=== PATIENT | male | born 1935 | race Caucasian/White ===

== ENCOUNTER 2018-03-03 19:03 | Inpatient (IN) | payer MEDICARE, OTHER ==
[~2018-03-03] VITALS: Ht 185.4 cm; Wt 85.5 kg
[~2018-03-03 19:03] MED LIST: ALPR-624 PO; ASPI-41 PO; ATOR10TA PO; CHLO25TA2 PO; ECHI350C PO; GABA-534 PO; METO-395 PO; MULT-1179 PO; UBID75CA; VITA-67 PO
[2018-03-03 19:43] LABS: BASOPHILS % (AUTO) 0.2 % (0-1); EOSINOPHILS # (AUTO) 0.2 X10'3 (0-0.9); EOSINOPHILS % (AUTO) 1.3 % (0-6); HEMATOCRIT 45.5 % (42.0-52.0); HEMOGLOBIN 15.6 g/dl (14.0-17.9); LYMPHOCYTES # (AUTO) 2.5 X10'3 (1.1-4.8); LYMPHOCYTES % (AUTO) 19.9 % (21-51); MEAN CORPUSCULAR HEMOGLOBIN 32.8 PG (27.0-31.0); MEAN CORPUSCULAR HGB CONC 34.3 % (33.0-36.5); MEAN CORPUSCULAR VOLUME 95.6 FL (78-98); MEAN PLATELET VOLUME 9.8 FL (7.4-10.4); MONOCYTES # (AUTO) 0.4 X10'3 (0-0.9); MONOCYTES % (AUTO) 3.5 % (2-12); NEUTROPHILS # (AUTO) 9.3 X10'3 (1.8-7.7); NEUTROPHILS % (AUTO) 75.1 % (42-75); PLATELET COUNT 209 X10'3 (140-440); RED BLOOD COUNT 4.76 X10'6 (4.70-6.10); RED CELL DISTRIBUTION WIDTH 12.4 % (11.5-14.5); WHITE BLOOD COUNT 12.4 X10'3 (4.5-11.0)
[2018-03-03] MEDS ORDERED: pantoprazole 40 MG vial IV ONE (19:45)
[2018-03-03] MEDS ORDERED: ondansetron/PF 4mg/2ml inj IV ONE (19:45)
[2018-03-03] MEDS ORDERED: normal saline 1000ML IV soln IVB ONE ×2 (19:45→20:35)
[2018-03-03] MEDS ORDERED: famotidine/PF 10 mg/ml inj IV ONE (19:45)
[2018-03-03 19:58] LABS: INR 1.1 INR; PROTHROMBIN TIME 10.7 SECONDS (9.0-12.0)
[2018-03-03 20:03] LABS: ALANINE AMINOTRANSFERASE 26 U/L (12-78); ALBUMIN 4.2 G/DL (3.4-5.0); ALBUMIN/GLOBULIN RATIO 1.3 (1.1-1.5); ALKALINE PHOSPHATASE 78 IU/L (46-116); ANION GAP 14 (8-16); ASPARTATE AMINO TRANSFERASE 21 U/L (10-37); BILIRUBIN,TOTAL 0.6 MG/DL (0.1-1.0); BLOOD UREA NITROGEN 27 MG/DL (7-18); BUN/CREATININE RATIO 17.8 (5.4-32.0); CALCIUM 9.5 MG/DL (8.5-10.1); CHLORIDE 102 MMOL/L (99-107); CREATININE 1.52 MG/DL (0.60-1.10); GLUCOSE 135 MG/DL (70-104); SODIUM 141 MMOL/L (135-145); TOTAL CARBON DIOXIDE 25.4 MMOL/L (24-32); TOTAL PROTEIN 7.4 G/DL (6.4-8.2); eGFR 44 ML/MIN
[2018-03-03 20:07] LABS: LIPASE 120 U/L (73-393); MAGNESIUM 2.1 MG/DL (1.5-2.4)
[2018-03-03] MEDS ORDERED: morphine 4 MG/ML inj SYRINge IM ONE (20:40)
[2018-03-03] MEDS: morphine 4 MG/ML inj SYRINge IV PRN ×2 (20:46→20:59)
[2018-03-03] MEDS ORDERED: HYDROmorphone 2mg/ml vial IV STA (21:03)
[2018-03-03] MEDS ORDERED: HYDROmorphone 1 mg/ml syringe IV STA (21:17)
[2018-03-03] MEDS ORDERED: hydrALAZINE 20mg/ml inj. IV STA (22:09)
[2018-03-03] MEDS ORDERED: AREDS PO (23:00)
[2018-03-03] MEDS ORDERED: SOMNAPURE (23:00)
[2018-03-03] MEDS ORDERED: METO-539 PO (23:00)
[2018-03-04] VITALS (19 sets, daily range): BP systolic 131–173; BP diastolic 49–91
[2018-03-04] MEDS: LORazepam 2 mg/ml vial IV PRN (00:07)
[2018-03-04 00:40] LABS: CLARITY,URINE CLEAR (Clear); COLOR,URINE YELLOW (Yellow); GLUCOSE, URINE NEGATIVE (Neg); KETONES,URINE >=80 mg/dl (Neg); LEUKOCYTE ESTERASE ,URINE NEGATIVE (Neg); NITRITES, URINE NEGATIVE (Neg); OCCULT BLOOD,URINE NEGATIVE (Neg); PROTEIN,URINE NEGATIVE (Neg); UA COLLECTION TYPE VOIDED; UROBILINOGEN,URINE 0.2 E.U/dL (0.2-1.0)
[2018-03-04 00:49] LABS: URINE AMPHETAMINE SCREEN NEGATIVE (Neg); URINE BARBITUATE SCREEN NEGATIVE (Neg); URINE BENZODIAZEPINES SCREEN POSITIVE (Neg); URINE CANNABINOID SCREEN NEGATIVE (Neg); URINE COCAINE SCREEN NEGATIVE (Neg); URINE METHADONE SCREEN NEGATIVE (Neg); URINE OPIATE SCREEN POSITIVE (Neg); URINE PHENCYCLIDINE SCREEN NEGATIVE (Neg)
[2018-03-04] MEDS: normal saline 1000ml 1,000 ML IV SCH ×3 (01:13→17:28)
[2018-03-04] MEDS: HYDROmorphone 1 mg/ml syringe IV PRN ×3 (05:27→21:12)
[2018-03-04] MEDS: ondansetron/PF 4mg/2ml inj IV PRN (05:27)
[2018-03-04 06:01] LABS: BASOPHILS % (AUTO) 0.3 % (0-1); EOSINOPHILS % (AUTO) 0 % (0-6); HEMATOCRIT 46.2 % (42.0-52.0); HEMOGLOBIN 15.6 g/dl (14.0-17.9); LYMPHOCYTES # (AUTO) 0.7 X10'3 (1.1-4.8); LYMPHOCYTES % (AUTO) 4.3 % (21-51); MEAN CORPUSCULAR HEMOGLOBIN 32.4 PG (27.0-31.0); MEAN CORPUSCULAR HGB CONC 33.7 % (33.0-36.5); MEAN CORPUSCULAR VOLUME 96.1 FL (78-98); MEAN PLATELET VOLUME 10.3 FL (7.4-10.4); MONOCYTES # (AUTO) 0.4 X10'3 (0-0.9); MONOCYTES % (AUTO) 2.2 % (2-12); NEUTROPHILS # (AUTO) 14.9 X10'3 (1.8-7.7); NEUTROPHILS % (AUTO) 93.2 % (42-75); PLATELET COUNT 207 X10'3 (140-440); RED BLOOD COUNT 4.81 X10'6 (4.70-6.10); RED CELL DISTRIBUTION WIDTH 12.7 % (11.5-14.5)
[2018-03-04 06:04] LABS: ALANINE AMINOTRANSFERASE 19 U/L (12-78); ALBUMIN 3.3 G/DL (3.4-5.0); ALBUMIN/GLOBULIN RATIO 1.1 (1.1-1.5); ALKALINE PHOSPHATASE 69 IU/L (46-116); ANION GAP 9 (8-16); ASPARTATE AMINO TRANSFERASE 18 U/L (10-37); BILIRUBIN,TOTAL 0.6 MG/DL (0.1-1.0); BLOOD UREA NITROGEN 28 MG/DL (7-18); BUN/CREATININE RATIO 21.7 (5.4-32.0); CALCIUM 8.1 MG/DL (8.5-10.1); CHLORIDE 104 MMOL/L (99-107); CREATININE 1.29 MG/DL (0.60-1.10); GLUCOSE 180 MG/DL (70-104); POTASSIUM 4.6 MMOL/L (3.5-5.1); SODIUM 140 MMOL/L (135-145); TOTAL CARBON DIOXIDE 27.1 MMOL/L (24-32); TOTAL PROTEIN 6.3 G/DL (6.4-8.2); eGFR 53 ML/MIN
[2018-03-04] MEDS ORDERED: proCHLORperazine 10 MG/2 ml inj IV PRN ×2 (08:50→12:55)
[2018-03-04] MEDS: proCHLORperazine 10 MG/2 ml inj IV PRN (09:24)
[2018-03-04 09:38] LABS: HEMOGLOBIN A1C 5.2 % (4.5-6.2)
[2018-03-04] MEDS ORDERED: dexamethasone sod phosphate 10mg/ml inj ONE (11:54)
[2018-03-04] MEDS ORDERED: sevoflurane 250ml liquid IH ONE (11:54)
[2018-03-04] MEDS ORDERED: neostigmine methylsulfate 1 MG/ML 10ml vial ONE (11:54)
[2018-03-04] MEDS ORDERED: midazolam 2 mg/2 ml injection ONE (11:59)
[2018-03-04] MEDS ORDERED: propofol inj 20 ML IV ONE (12:00)
[2018-03-04] MEDS ORDERED: fentaNYL /PF 50mcg/ml 5ml ampule ONE (12:00)
[2018-03-04] MEDS ORDERED: rocuronium 10mg/ml inj IV ONE (12:00)
[2018-03-04] MEDS ORDERED: ceFOXitin 1000 MG inj ONE ×2 (12:16)
[2018-03-04] MEDS ORDERED: sugammadex 200mg/2ml injection IV ONE (12:40)
[2018-03-04] MEDS ORDERED: ringers solution, lacted 1,000 ML IV SCH (12:54)
[2018-03-04] MEDS ORDERED: morphine 4 MG/ML inj SYRINge IV PRN ×2 (12:55)
[2018-03-04] MEDS ORDERED: ondansetron/PF 4mg/2ml inj IV PRN (12:55)
[2018-03-04] MEDS ORDERED: meperidine/PF 25mg/ml syringe IV PRN ×2 (12:55)
[2018-03-04] MEDS: meperidine/PF 25mg/ml syringe IV PRN ×2 (13:04→13:51)
[2018-03-04] MEDS: gabapentin 400mg capsule PO SCH (20:46)
[2018-03-05] VITALS: BP 139/61
[2018-03-05] MEDS: HYDROmorphone 1 mg/ml syringe IV PRN ×4 (04:53→22:08)
[2018-03-05] MEDS: normal saline 1000ml 1,000 ML IV SCH ×2 (04:54→15:50)
[2018-03-05 05:48] LABS: BASOPHILS % (AUTO) 0.1 % (0-1); EOSINOPHILS # (AUTO) 0.2 X10'3 (0-0.9); EOSINOPHILS % (AUTO) 1.1 % (0-6); HEMATOCRIT 40.7 % (42.0-52.0); HEMOGLOBIN 13.7 g/dl (14.0-17.9); LYMPHOCYTES # (AUTO) 1.3 X10'3 (1.1-4.8); MEAN CORPUSCULAR HEMOGLOBIN 32.6 PG (27.0-31.0); MEAN CORPUSCULAR HGB CONC 33.7 % (33.0-36.5); MEAN CORPUSCULAR VOLUME 96.6 FL (78-98); MEAN PLATELET VOLUME 9.7 FL (7.4-10.4); MONOCYTES # (AUTO) 1.4 X10'3 (0-0.9); MONOCYTES % (AUTO) 6.7 % (2-12); NEUTROPHILS # (AUTO) 18.3 X10'3 (1.8-7.7); NEUTROPHILS % (AUTO) 86.1 % (42-75); PLATELET COUNT 186 X10'3 (140-440); RED BLOOD COUNT 4.21 X10'6 (4.70-6.10); RED CELL DISTRIBUTION WIDTH 12.8 % (11.5-14.5); WHITE BLOOD COUNT 21.2 X10'3 (4.5-11.0)
[2018-03-05] MEDS: hydrALAZINE 20mg/ml inj. IV PRN (05:53)
[2018-03-05 06:31] LABS: ALANINE AMINOTRANSFERASE 16 U/L (12-78); ALBUMIN 2.7 G/DL (3.4-5.0); ALBUMIN/GLOBULIN RATIO 0.9 (1.1-1.5); ALKALINE PHOSPHATASE 55 IU/L (46-116); ANION GAP 10 (8-16); ASPARTATE AMINO TRANSFERASE 22 U/L (10-37); BILIRUBIN,TOTAL 0.5 MG/DL (0.1-1.0); BLOOD UREA NITROGEN 34 MG/DL (7-18); BUN/CREATININE RATIO 22.5 (5.4-32.0); CALCIUM 7.6 MG/DL (8.5-10.1); CHLORIDE 106 MMOL/L (99-107); CREATININE 1.51 MG/DL (0.60-1.10); GLUCOSE 134 MG/DL (70-104); POTASSIUM 4.6 MMOL/L (3.5-5.1); SODIUM 140 MMOL/L (135-145); TOTAL CARBON DIOXIDE 23.9 MMOL/L (24-32); TOTAL PROTEIN 5.6 G/DL (6.4-8.2); eGFR 44 ML/MIN
[2018-03-05] MEDS: metoprolol succinate 25mg (24-HOUR) SR. Tablet PO SCH (07:11)
[2018-03-05 07:30] VITALS: BP 181/77
[2018-03-05 11:30] VITALS: BP 154/66
[2018-03-05] MEDS: ondansetron/PF 4mg/2ml inj IV PRN (17:17)
[2018-03-05] MEDS: proCHLORperazine 10 MG/2 ml inj IV PRN (18:03)
[2018-03-05 19:00] VITALS: BP 147/81
[2018-03-05] MEDS: gabapentin 400mg capsule PO SCH (20:46)
[2018-03-05 23:47] VITALS: BP 158/70
[2018-03-06] MEDS: normal saline 1000ml 1,000 ML IV SCH (01:23)
[2018-03-06] MEDS: HYDROmorphone 1 mg/ml syringe IV PRN ×5 (02:11→23:29)
[2018-03-06] MEDS: proCHLORperazine 10 MG/2 ml inj IV PRN ×2 (03:00→18:51)
[2018-03-06 05:11] LABS: BASOPHILS # (AUTO) 0.1 X10'3 (0-0.2); BASOPHILS % (AUTO) 0.3 % (0-1); EOSINOPHILS % (AUTO) 0.1 % (0-6); HEMATOCRIT 36.5 % (42.0-52.0); HEMOGLOBIN 12.3 g/dl (14.0-17.9); LYMPHOCYTES # (AUTO) 1.1 X10'3 (1.1-4.8); LYMPHOCYTES % (AUTO) 7.1 % (21-51); MEAN CORPUSCULAR HEMOGLOBIN 32.7 PG (27.0-31.0); MEAN CORPUSCULAR HGB CONC 33.8 % (33.0-36.5); MEAN CORPUSCULAR VOLUME 96.7 FL (78-98); MEAN PLATELET VOLUME 10.1 FL (7.4-10.4); MONOCYTES % (AUTO) 7.1 % (2-12); NEUTROPHILS # (AUTO) 12.6 X10'3 (1.8-7.7); NEUTROPHILS % (AUTO) 85.4 % (42-75); PLATELET COUNT 157 X10'3 (140-440); RED BLOOD COUNT 3.77 X10'6 (4.70-6.10); WHITE BLOOD COUNT 14.8 X10'3 (4.5-11.0)
[2018-03-06 05:29] LABS: ALANINE AMINOTRANSFERASE 20 U/L (12-78); ALBUMIN 2.6 G/DL (3.4-5.0); ALBUMIN/GLOBULIN RATIO 0.9 (1.1-1.5); ALKALINE PHOSPHATASE 78 IU/L (46-116); ANION GAP 7 (8-16); ASPARTATE AMINO TRANSFERASE 32 U/L (10-37); BILIRUBIN,TOTAL 0.7 MG/DL (0.1-1.0); BLOOD UREA NITROGEN 29 MG/DL (7-18); BUN/CREATININE RATIO 21.2 (5.4-32.0); CALCIUM 7.6 MG/DL (8.5-10.1); CHLORIDE 105 MMOL/L (99-107); CREATININE 1.37 MG/DL (0.60-1.10); GLUCOSE 132 MG/DL (70-104); POTASSIUM 4.3 MMOL/L (3.5-5.1); SODIUM 138 MMOL/L (135-145); TOTAL CARBON DIOXIDE 26.2 MMOL/L (24-32); TOTAL PROTEIN 5.6 G/DL (6.4-8.2); eGFR 50 ML/MIN
[2018-03-06 07:12] VITALS: BP 196/88
[2018-03-06] MEDS: metoprolol succinate 25mg (24-HOUR) SR. Tablet PO SCH (07:41)
[2018-03-06] MEDS: hydrALAZINE 20mg/ml inj. IV PRN ×2 (07:41→20:59)
[2018-03-06 09:40] VITALS: BP 186/72
[2018-03-06] MEDS ORDERED: amLODIPine 5mg tablet PO ONE (10:00)
[2018-03-06 11:00] VITALS: BP 166/79
[2018-03-06] MEDS: diatr meglu/diatrizoate 30ml oral sol.-(3 dose) bottle PO SCH ×3 (11:48→17:41)
[2018-03-06 18:00] VITALS: BP 184/81
[2018-03-06] MEDS: ipratropium/albuterol 3ml nebule NEB PRN ×2 (20:12→23:48)
[2018-03-06] MEDS: gabapentin 400mg capsule PO SCH (20:59)
[2018-03-06 21:30] VITALS: BP 138/85
[2018-03-06] MEDS ORDERED: mag hydrox/Alum hydrox/simeth 30ml oral suspension PO PRN (23:05)
[2018-03-07] VITALS: BP 144/86
[2018-03-07] MEDS: proCHLORperazine 10 MG/2 ml inj IV PRN ×2 (03:50→15:16)
[2018-03-07] MEDS: HYDROmorphone 1 mg/ml syringe IV PRN ×3 (03:50→15:16)
[2018-03-07 05:12] LABS: BASOPHILS % (AUTO) 0.3 % (0-1); EOSINOPHILS % (AUTO) 0 % (0-6); HEMATOCRIT 38.7 % (42.0-52.0); HEMOGLOBIN 13.1 g/dl (14.0-17.9); LYMPHOCYTES # (AUTO) 1.1 X10'3 (1.1-4.8); LYMPHOCYTES % (AUTO) 8.1 % (21-51); MEAN CORPUSCULAR HEMOGLOBIN 32.8 PG (27.0-31.0); MEAN CORPUSCULAR HGB CONC 33.8 % (33.0-36.5); MEAN CORPUSCULAR VOLUME 97.1 FL (78-98); MEAN PLATELET VOLUME 10.3 FL (7.4-10.4); MONOCYTES # (AUTO) 0.9 X10'3 (0-0.9); MONOCYTES % (AUTO) 6.8 % (2-12); NEUTROPHILS # (AUTO) 11.5 X10'3 (1.8-7.7); NEUTROPHILS % (AUTO) 84.8 % (42-75); PLATELET COUNT 201 X10'3 (140-440); RED BLOOD COUNT 3.99 X10'6 (4.70-6.10); RED CELL DISTRIBUTION WIDTH 12.8 % (11.5-14.5); WHITE BLOOD COUNT 13.6 X10'3 (4.5-11.0)
[2018-03-07] MEDS: ipratropium/albuterol 3ml nebule NEB PRN (05:17)
[2018-03-07 05:59] LABS: ALANINE AMINOTRANSFERASE 25 U/L (12-78); ALBUMIN 2.7 G/DL (3.4-5.0); ALBUMIN/GLOBULIN RATIO 0.8 (1.1-1.5); ALKALINE PHOSPHATASE 58 IU/L (46-116); ANION GAP 8 (8-16); ASPARTATE AMINO TRANSFERASE 32 U/L (10-37); BILIRUBIN,TOTAL 0.7 MG/DL (0.1-1.0); BLOOD UREA NITROGEN 32 MG/DL (7-18); BUN/CREATININE RATIO 25.2 (5.4-32.0); CALCIUM 8.2 MG/DL (8.5-10.1); CHLORIDE 103 MMOL/L (99-107); CREATININE 1.27 MG/DL (0.60-1.10); GLUCOSE 134 MG/DL (70-104); POTASSIUM 4.1 MMOL/L (3.5-5.1); SODIUM 138 MMOL/L (135-145); TOTAL CARBON DIOXIDE 26.7 MMOL/L (24-32); TOTAL PROTEIN 6.1 G/DL (6.4-8.2); eGFR 54 ML/MIN
[2018-03-07 08:00] VITALS: BP 171/80
[2018-03-07] MEDS: ipratropium/albuterol 3ml nebule NEB SCH ×5 (08:55→23:44)
[2018-03-07] MEDS: metoprolol succinate 25mg (24-HOUR) SR. Tablet PO SCH (09:03)
[2018-03-07] MEDS: hydrALAZINE 20mg/ml inj. IV PRN (09:05)
[2018-03-07] MEDS: CefTRIAXone/D5W-Rocephin 1gm 50 ML IV SCH (10:53)
[2018-03-07 11:00] VITALS: BP 160/74
[2018-03-07] MEDS ORDERED: furosemide 40mg/4ml inj IV ONE (17:25)
[2018-03-07] MEDS ORDERED: furosemide 40mg/4ml inj ONE (17:28)
[2018-03-07 17:36] LABS: ABG BASE EXCESS 1.3 mmol/L (-2.0-3.0); ABG OXYGEN SATURATION 90.8 % (95-98); ABG PCO2 (T) 41.4 mmHg (35.0-48.0); ABG PH (T) 7.416 (7.350-7.450); ABG PO2 (T) 55.7 mmHg (83-108); ALLEN'S TEST Positive; FCOHb 0.8 % (0.5-1.5); FLOW 6 L/min; FMetHb 0.2 % (0.3-1.12); FO2Hb 89.9 % (94-100); TOTAL HEMOGLOBIN 14.3 G/dl (14.0-18.0)
[2018-03-07 18:30] VITALS: BP 142/88
[2018-03-07] MEDS ORDERED: heparin, porcine 5000 units/ml vial SQ SCH (20:00)
[2018-03-07] MEDS: fluconazole 100mg tablet PO SCH (20:03)
[2018-03-07] MEDS: gabapentin 400mg capsule PO SCH (21:00)
[2018-03-07 23:46] LABS: ABG BASE EXCESS 1.9 mmol/L (-2.0-3.0); ABG PCO2 (T) 33.4 mmHg (35.0-48.0); ABG PO2 (T) 67.5 mmHg (83-108); ALLEN'S TEST Positive; FCOHb 0.5 % (0.5-1.5); FLOW 5 L/min; FMetHb 0.2 % (0.3-1.12); FO2Hb 94.3 % (94-100); PATIENT TEMPERATURE 36.3; TOTAL HEMOGLOBIN 14.7 G/dl (14.0-18.0)
[2018-03-07 23:53] LABS: MAGNESIUM 2.6 MG/DL (1.5-2.4); PHOSPHORUS 2.8 MG/DL (2.3-4.5); TROPONIN I 0.15 NG/ML (0.0-0.05)
[2018-03-08] MEDS: azithromycin/NS 500mg/250ml 250 ML IV SCH
[2018-03-08 00:10] LABS: D-DIMER 10.12 MG/L FEU (0-0.50)
[2018-03-08] MEDS ORDERED: heparin 10,000 units/1 ML INJ IV PRN ×2 (00:55→01:05)
[2018-03-08] MEDS ORDERED: heparin 25,000 UNIT/250ml bag 250 ML IV SCH (00:55)
[2018-03-08] MEDS ORDERED: heparin 10,000 units/1 ML INJ IV ONE ×2 (00:55→01:05)
[2018-03-08] MEDS: HYDROmorphone 1 mg/ml syringe IV PRN (01:46)
[2018-03-08 02:00] VITALS: BP 153/79
[2018-03-08] MEDS: heparin 25,000 UNIT/250ml bag 250 ML IV SCH ×3 (02:00→21:15)
[2018-03-08 02:23] LABS: ALANINE AMINOTRANSFERASE 20 U/L (12-78); ALBUMIN 2.6 G/DL (3.4-5.0); ALBUMIN/GLOBULIN RATIO 0.8 (1.1-1.5); ALKALINE PHOSPHATASE 57 IU/L (46-116); ANION GAP 6 (8-16); ASPARTATE AMINO TRANSFERASE 23 U/L (10-37); BASOPHILS % (AUTO) 0.2 % (0-1); BILIRUBIN,TOTAL 0.8 MG/DL (0.1-1.0); BLOOD UREA NITROGEN 43 MG/DL (7-18); BUN/CREATININE RATIO 29.9 (5.4-32.0); CALCIUM 8.1 MG/DL (8.5-10.1); CHLORIDE 101 MMOL/L (99-107); CREATININE 1.44 MG/DL (0.60-1.10); EOSINOPHILS % (AUTO) 0 % (0-6); GLUCOSE 162 MG/DL (70-104); HEMATOCRIT 39.1 % (42.0-52.0); HEMOGLOBIN 13.3 g/dl (14.0-17.9); LYMPHOCYTES # (AUTO) 0.6 X10'3 (1.1-4.8); MEAN CORPUSCULAR HEMOGLOBIN 32.5 PG (27.0-31.0); MEAN CORPUSCULAR HGB CONC 34.1 % (33.0-36.5); MEAN CORPUSCULAR VOLUME 95.5 FL (78-98); MEAN PLATELET VOLUME 10.1 FL (7.4-10.4); MONOCYTES # (AUTO) 0.6 X10'3 (0-0.9); MONOCYTES % (AUTO) 5.7 % (2-12); NEUTROPHILS # (AUTO) 9.8 X10'3 (1.8-7.7); NEUTROPHILS % (AUTO) 89.1 % (42-75); PLATELET COUNT 230 X10'3 (140-440); POTASSIUM 3.8 MMOL/L (3.5-5.1); RED BLOOD COUNT 4.09 X10'6 (4.70-6.10); RED CELL DISTRIBUTION WIDTH 12.6 % (11.5-14.5); SODIUM 137 MMOL/L (135-145); TOTAL CARBON DIOXIDE 29.7 MMOL/L (24-32); TOTAL PROTEIN 5.9 G/DL (6.4-8.2); eGFR 47 ML/MIN
[2018-03-08 02:50] LABS: INR 1.2 INR; PARTIAL THROMBOPLASTIN TIME 31 SECONDS (22-32); PROTHROMBIN TIME 11.8 SECONDS (9.0-12.0)
[2018-03-08] MEDS: ipratropium/albuterol 3ml nebule NEB SCH ×6 (03:27→23:28)
[2018-03-08] MEDS: LORazepam 2 mg/ml vial IV PRN ×2 (03:49→23:44)
[2018-03-08 05:33] LABS: BASOPHILS % (AUTO) 0 % (0-1); EOSINOPHILS % (AUTO) 0 % (0-6); HEMOGLOBIN 13.1 g/dl (14.0-17.9); LYMPHOCYTES # (AUTO) 0.8 X10'3 (1.1-4.8); LYMPHOCYTES % (AUTO) 7.6 % (21-51); MEAN CORPUSCULAR HEMOGLOBIN 32.2 PG (27.0-31.0); MEAN CORPUSCULAR HGB CONC 33.5 % (33.0-36.5); MEAN CORPUSCULAR VOLUME 96.3 FL (78-98); MEAN PLATELET VOLUME 9.9 FL (7.4-10.4); MONOCYTES # (AUTO) 0.9 X10'3 (0-0.9); MONOCYTES % (AUTO) 8.6 % (2-12); NEUTROPHILS # (AUTO) 8.6 X10'3 (1.8-7.7); NEUTROPHILS % (AUTO) 83.8 % (42-75); PLATELET COUNT 239 X10'3 (140-440); RED BLOOD COUNT 4.05 X10'6 (4.70-6.10); WHITE BLOOD COUNT 10.3 X10'3 (4.5-11.0)
[2018-03-08] MEDS: proCHLORperazine 10 MG/2 ml inj IV PRN (06:37)
[2018-03-08 07:00] VITALS: BP 151/78
[2018-03-08] MEDS: metoprolol succinate 25mg (24-HOUR) SR. Tablet PO SCH (07:57)
[2018-03-08] MEDS: CefTRIAXone/D5W-Rocephin 1gm 50 ML IV SCH (07:59)
[2018-03-08] MEDS ORDERED: nitroGLYCERIN 0.1mg/hour patch TD SCH (08:00)
[2018-03-08] MEDS ORDERED: furosemide 40mg/4ml inj IV SCH (08:00)
[2018-03-08] MEDS ORDERED: aspirin 81mg tab.chew PO SCH (08:30)
[2018-03-08] MEDS: fluconazole 100mg tablet PO SCH (10:50)
[2018-03-08 11:00] VITALS: BP 155/79
[2018-03-08] MEDS ORDERED: normal saline 1000ml 1,000 ML IV SCH (14:40)
[2018-03-08 15:00] VITALS: BP 158/64
[2018-03-08 19:00] VITALS: BP 156/87
[2018-03-08] MEDS: gabapentin 400mg capsule PO SCH (19:52)
[2018-03-08] MEDS: docusate sod 100mg capsule PO SCH (19:52)
[2018-03-08] MEDS: lactobacillus rhamnosus 10,000 MMU CELLS/CAPSULE PO SCH (19:52)
[2018-03-08 23:00] VITALS: BP 160/75
[2018-03-08] MEDS ORDERED: hydrALAZINE 20mg/ml inj. IV ONE (23:20)
[2018-03-08 23:26] LABS: ABG BASE EXCESS 1.2 mmol/L (-2.0-3.0); ABG HCO3 24.4 mmol/L (22.0-26.0); ABG OXYGEN SATURATION 90.2 % (95-98); ABG PH (T) 7.474 (7.350-7.450); ABG PO2 (T) 54.7 mmHg (83-108); FCOHb 0.3 % (0.5-1.5); FLOW 12 L/min; FMetHb 0.2 % (0.3-1.12); FO2Hb 89.7 % (94-100); PATIENT TEMPERATURE 36.7; RESPIRATORY RATE (OBSERVED) 20 b/min; TOTAL HEMOGLOBIN 13.2 G/dl (14.0-18.0)
[2018-03-08] MEDS: hydrALAZINE 20mg/ml inj. IV PRN (23:26)
[2018-03-08] MEDS ORDERED: nitroGLYCERIN 0.4mg SUBLingual tab SL STA (23:34)
[2018-03-08] MEDS ORDERED: nitroGLYCERIN 0.4mg SUBLingual tab SL ONE ×2 (23:34→23:38)
[2018-03-08] MEDS ORDERED: protamine sulf. 10mg/ml inj. IV ONE (23:40)
[2018-03-08 23:41] LABS: BASOPHILS % (AUTO) 0.2 % (0-1); EOSINOPHILS % (AUTO) 0.5 % (0-6); HEMATOCRIT 37.5 % (42.0-52.0); HEMOGLOBIN 12.3 g/dl (14.0-17.9); LYMPHOCYTES # (AUTO) 1.3 X10'3 (1.1-4.8); LYMPHOCYTES % (AUTO) 14.1 % (21-51); MEAN CORPUSCULAR HEMOGLOBIN 31.9 PG (27.0-31.0); MEAN CORPUSCULAR HGB CONC 32.7 % (33.0-36.5); MEAN CORPUSCULAR VOLUME 97.6 FL (78-98); MEAN PLATELET VOLUME 9.7 FL (7.4-10.4); MONOCYTES # (AUTO) 0.7 X10'3 (0-0.9); MONOCYTES % (AUTO) 7.7 % (2-12); NEUTROPHILS % (AUTO) 77.5 % (42-75); PLATELET COUNT 220 X10'3 (140-440); RED BLOOD COUNT 3.84 X10'6 (4.70-6.10); RED CELL DISTRIBUTION WIDTH 12.6 % (11.5-14.5)
[2018-03-08] MEDS ORDERED: pantoprazole 40 MG vial IV ONE (23:50)
[2018-03-08 23:54] LABS: ALANINE AMINOTRANSFERASE 27 U/L (12-78); ALBUMIN 2.3 G/DL (3.4-5.0); ALBUMIN/GLOBULIN RATIO 0.8 (1.1-1.5); ALKALINE PHOSPHATASE 85 IU/L (46-116); ANION GAP 7 (8-16); ASPARTATE AMINO TRANSFERASE 27 U/L (10-37); BILIRUBIN,TOTAL 0.9 MG/DL (0.1-1.0); BLOOD UREA NITROGEN 48 MG/DL (7-18); BUN/CREATININE RATIO 36.4 (5.4-32.0); CALCIUM 7.5 MG/DL (8.5-10.1); CHLORIDE 103 MMOL/L (99-107); CREATININE 1.32 MG/DL (0.60-1.10); GLUCOSE 113 MG/DL (70-104); POTASSIUM 3.6 MMOL/L (3.5-5.1); SODIUM 138 MMOL/L (135-145); TOTAL CARBON DIOXIDE 28.1 MMOL/L (24-32); TOTAL PROTEIN 5.3 G/DL (6.4-8.2); eGFR 52 ML/MIN
[2018-03-08 23:56] LABS: MAGNESIUM 2.3 MG/DL (1.5-2.4); TROPONIN I 0.05 NG/ML (0.0-0.05)
[2018-03-09] MEDS ORDERED: diphenhydrAMINE 50 mg/ml inj IM ONE (00:05)
[2018-03-09] MEDS ORDERED: methylPREDNISolone sod succ 125mg/2ml vial IV ONE (00:05)
[2018-03-09] MEDS: furosemide 20 MG/2 ML vial IV SCH ×2 (00:17→23:57)
[2018-03-09 00:30] LABS: INR 1.3 INR; PROTHROMBIN TIME 13.3 SECONDS (9.0-12.0)
[2018-03-09 00:33] LABS: PARTIAL THROMBOPLASTIN TIME 143 SECONDS (22-32)
[2018-03-09 00:46] LABS: ABG BASE EXCESS 1.4 mmol/L (-2.0-3.0); ABG HCO3 23.9 mmol/L (22.0-26.0); ABG OXYGEN SATURATION 97.3 % (95-98); ABG PCO2 (T) 30.6 mmHg (35.0-48.0); ABG PH (T) 7.509 (7.350-7.450); ABG PO2 (T) 87.6 mmHg (83-108); FCOHb 0.3 % (0.5-1.5); FMetHb 0.2 % (0.3-1.12); FO2Hb 96.8 % (94-100); MINUTE VOLUME 20 L/min; PATIENT TEMPERATURE 36.5; RESPIRATORY RATE 18 b/min; RESPIRATORY RATE (OBSERVED) 27 b/min
[2018-03-09] MEDS: azithromycin/NS 500mg/250ml 250 ML IV SCH (02:18)
[2018-03-09] MEDS: ipratropium/albuterol 3ml nebule NEB SCH ×6 (02:39→23:11)
[2018-03-09 03:00] VITALS: BP 138/66
[2018-03-09] MEDS: LORazepam 2 mg/ml vial IV PRN ×2 (03:33→23:55)
[2018-03-09 06:10] LABS: BASOPHILS % (AUTO) 0.1 % (0-1); EOSINOPHILS % (AUTO) 0.1 % (0-6); HEMATOCRIT 33.2 % (42.0-52.0); HEMOGLOBIN 11.4 g/dl (14.0-17.9); LYMPHOCYTES # (AUTO) 0.5 X10'3 (1.1-4.8); LYMPHOCYTES % (AUTO) 5.6 % (21-51); MEAN CORPUSCULAR HEMOGLOBIN 32.9 PG (27.0-31.0); MEAN CORPUSCULAR HGB CONC 34.3 % (33.0-36.5); MEAN CORPUSCULAR VOLUME 96.1 FL (78-98); MEAN PLATELET VOLUME 10.6 FL (7.4-10.4); MONOCYTES # (AUTO) 0.2 X10'3 (0-0.9); MONOCYTES % (AUTO) 2.4 % (2-12); NEUTROPHILS # (AUTO) 7.5 X10'3 (1.8-7.7); NEUTROPHILS % (AUTO) 91.8 % (42-75); PLATELET COUNT 188 X10'3 (140-440); RED BLOOD COUNT 3.46 X10'6 (4.70-6.10); RED CELL DISTRIBUTION WIDTH 12.7 % (11.5-14.5); WHITE BLOOD COUNT 8.1 X10'3 (4.5-11.0)
[2018-03-09 07:00] VITALS: BP 136/58
[2018-03-09] MEDS: lactobacillus rhamnosus 10,000 MMU CELLS/CAPSULE PO SCH ×2 (08:00→20:20)
[2018-03-09] MEDS ORDERED: furosemide 40mg/4ml inj IV SCH (08:00)
[2018-03-09] MEDS ORDERED: heparin, porcine 5000 units/ml vial SQ SCH (08:00)
[2018-03-09] MEDS: docusate sod 100mg capsule PO SCH ×2 (08:00→20:20)
[2018-03-09] MEDS: CefTRIAXone/D5W-Rocephin 1gm 50 ML IV SCH (08:11)
[2018-03-09] MEDS: furosemide 40mg/4ml inj IV SCH (08:15)
[2018-03-09] MEDS: fluconazole 100mg tablet PO SCH (08:20)
[2018-03-09] MEDS: metoprolol succinate 25mg (24-HOUR) SR. Tablet PO SCH (08:20)
[2018-03-09 11:00] VITALS: BP 125/72
[2018-03-09] MEDS ORDERED: LIDOcaine 1% (10mg/ml) 2ml vial ONE (11:50)
[2018-03-09] MEDS ORDERED: iohexol 350MG/ML 100ml bottle IV ONE (11:53)
[2018-03-09 15:00] VITALS: BP 159/73
[2018-03-09] MEDS: HYDROmorphone 1 mg/ml syringe IV PRN (17:39)
[2018-03-09] MEDS ORDERED: magnesium hydroxide 30ml (MOM) UD suspension PO PRN (17:55)
[2018-03-09 19:00] VITALS: BP 163/72
[2018-03-09] MEDS: gabapentin 400mg capsule PO SCH (20:20)
[2018-03-09 23:00] VITALS: BP 147/65
[2018-03-10 03:00] VITALS: BP 116/55
[2018-03-10] MEDS: ipratropium/albuterol 3ml nebule NEB SCH ×6 (03:00→23:28)
[2018-03-10] MEDS: methylPREDNISolone sod succ/PF 40mg inj. IV SCH ×3 (04:23→14:27)
[2018-03-10 05:41] LABS: BASOPHILS % (AUTO) 0.1 % (0-1); EOSINOPHILS % (AUTO) 0.5 % (0-6); HEMATOCRIT 31.1 % (42.0-52.0); HEMOGLOBIN 10.6 g/dl (14.0-17.9); LYMPHOCYTES # (AUTO) 1.3 X10'3 (1.1-4.8); LYMPHOCYTES % (AUTO) 15.3 % (21-51); MEAN CORPUSCULAR HGB CONC 34.2 % (33.0-36.5); MEAN CORPUSCULAR VOLUME 96.8 FL (78-98); MEAN PLATELET VOLUME 9.9 FL (7.4-10.4); MONOCYTES # (AUTO) 1.2 X10'3 (0-0.9); MONOCYTES % (AUTO) 13.9 % (2-12); NEUTROPHILS # (AUTO) 5.9 X10'3 (1.8-7.7); NEUTROPHILS % (AUTO) 70.2 % (42-75); PLATELET COUNT 193 X10'3 (140-440); RED BLOOD COUNT 3.21 X10'6 (4.70-6.10); RED CELL DISTRIBUTION WIDTH 12.7 % (11.5-14.5); WHITE BLOOD COUNT 8.5 X10'3 (4.5-11.0)
[2018-03-10 08:00] VITALS: BP 132/74
[2018-03-10] MEDS ORDERED: enoxaparin 60mg/0.6ml syringe SUBCUT SCH (08:00)
[2018-03-10] MEDS ORDERED: enoxaparin 30mg/0.3ml syringe SUBCUT SCH (08:00)
[2018-03-10] MEDS: metoprolol succinate 25mg (24-HOUR) SR. Tablet PO SCH (08:28)
[2018-03-10] MEDS: azithromycin 250mg tablet PO SCH (08:28)
[2018-03-10] MEDS: docusate sod 100mg capsule PO SCH ×2 (08:30→20:04)
[2018-03-10] MEDS: furosemide 40mg/4ml inj IV SCH (08:32)
[2018-03-10] MEDS: heparin, porcine 5000 units/ml vial SQ SCH ×2 (08:32→20:05)
[2018-03-10] MEDS: CefTRIAXone/D5W-Rocephin 1gm 50 ML IV SCH (08:38)
[2018-03-10] MEDS: lactobacillus rhamnosus 10,000 MMU CELLS/CAPSULE PO SCH ×2 (08:38→20:04)
[2018-03-10] MEDS: fluconazole 100mg tablet PO SCH (08:42)
[2018-03-10 11:00] VITALS: BP 148/62
[2018-03-10 15:00] VITALS: BP 157/80
[2018-03-10 15:17] LABS: ALANINE AMINOTRANSFERASE 103 U/L (12-78); ALBUMIN 2.3 G/DL (3.4-5.0); ALBUMIN/GLOBULIN RATIO 0.7 (1.1-1.5); ALKALINE PHOSPHATASE 129 IU/L (46-116); ANION GAP 9 (8-16); ASPARTATE AMINO TRANSFERASE 74 U/L (10-37); BILIRUBIN,TOTAL 0.5 MG/DL (0.1-1.0); BLOOD UREA NITROGEN 45 MG/DL (7-18); BUN/CREATININE RATIO 32.8 (5.4-32.0); CALCIUM 7.9 MG/DL (8.5-10.1); CHLORIDE 104 MMOL/L (99-107); CREATININE 1.37 MG/DL (0.60-1.10); GLUCOSE 162 MG/DL (70-104); POTASSIUM 3.9 MMOL/L (3.5-5.1); SODIUM 139 MMOL/L (135-145); TOTAL CARBON DIOXIDE 26.4 MMOL/L (24-32); TOTAL PROTEIN 5.5 G/DL (6.4-8.2); eGFR 50 ML/MIN
[2018-03-10 19:00] VITALS: BP 164/70
[2018-03-10] MEDS: gabapentin 400mg capsule PO SCH (21:52)
[2018-03-10 23:00] VITALS: BP 162/72
[2018-03-11] MEDS: furosemide 20 MG/2 ML vial IV SCH (00:05)
[2018-03-11] MEDS: ondansetron/PF 4mg/2ml inj IV PRN (01:48)
[2018-03-11 03:00] VITALS: BP 160/71
[2018-03-11] MEDS: ipratropium/albuterol 3ml nebule NEB SCH ×4 (03:33→15:54)
[2018-03-11 05:52] LABS: BASOPHILS % (AUTO) 0.3 % (0-1); EOSINOPHILS % (AUTO) 0.1 % (0-6); HEMATOCRIT 34.1 % (42.0-52.0); HEMOGLOBIN 11.4 g/dl (14.0-17.9); LYMPHOCYTES # (AUTO) 1.7 X10'3 (1.1-4.8); LYMPHOCYTES % (AUTO) 13.9 % (21-51); MEAN CORPUSCULAR HEMOGLOBIN 32.2 PG (27.0-31.0); MEAN CORPUSCULAR HGB CONC 33.6 % (33.0-36.5); MEAN CORPUSCULAR VOLUME 95.8 FL (78-98); MEAN PLATELET VOLUME 10.4 FL (7.4-10.4); MONOCYTES # (AUTO) 1.3 X10'3 (0-0.9); MONOCYTES % (AUTO) 10.9 % (2-12); NEUTROPHILS # (AUTO) 9.1 X10'3 (1.8-7.7); NEUTROPHILS % (AUTO) 74.8 % (42-75); PLATELET COUNT 237 X10'3 (140-440); RED BLOOD COUNT 3.55 X10'6 (4.70-6.10); RED CELL DISTRIBUTION WIDTH 12.5 % (11.5-14.5); WHITE BLOOD COUNT 12.2 X10'3 (4.5-11.0)
[2018-03-11 06:00] VITALS: BP 176/78
[2018-03-11 06:24] LABS: ALANINE AMINOTRANSFERASE 170 U/L (12-78); ALBUMIN 2.3 G/DL (3.4-5.0); ALBUMIN/GLOBULIN RATIO 0.7 (1.1-1.5); ALKALINE PHOSPHATASE 140 IU/L (46-116); ANION GAP 8 (8-16); ASPARTATE AMINO TRANSFERASE 114 U/L (10-37); BILIRUBIN,TOTAL 0.4 MG/DL (0.1-1.0); BLOOD UREA NITROGEN 38 MG/DL (7-18); BUN/CREATININE RATIO 29.5 (5.4-32.0); CHLORIDE 104 MMOL/L (99-107); CREATININE 1.29 MG/DL (0.60-1.10); GLUCOSE 136 MG/DL (70-104); POTASSIUM 3.4 MMOL/L (3.5-5.1); SODIUM 141 MMOL/L (135-145); TOTAL CARBON DIOXIDE 28.7 MMOL/L (24-32); TOTAL PROTEIN 5.4 G/DL (6.4-8.2); eGFR 53 ML/MIN
[2018-03-11] MEDS ORDERED: predniSONE 20 mg tablet PO SCH (08:00)
[2018-03-11] MEDS: lactobacillus rhamnosus 10,000 MMU CELLS/CAPSULE PO SCH (08:15)
[2018-03-11] MEDS: metoprolol succinate 25mg (24-HOUR) SR. Tablet PO SCH (08:15)
[2018-03-11] MEDS: azithromycin 250mg tablet PO SCH (08:15)
[2018-03-11] MEDS: fluconazole 100mg tablet PO SCH (08:15)
[2018-03-11] MEDS: furosemide 40mg/4ml inj IV SCH (08:16)
[2018-03-11] MEDS: heparin, porcine 5000 units/ml vial SQ SCH (08:17)
[2018-03-11] MEDS: CefTRIAXone/D5W-Rocephin 1gm 50 ML IV SCH (08:19)
[2018-03-11] MEDS: docusate sod 100mg capsule PO SCH (08:21)
[2018-03-11 11:00] VITALS: BP 148/69
[2018-03-11] MEDS ORDERED: AMOX-422 PO (13:55)
[2018-03-11] MEDS ORDERED: PRED20TA PO (13:55)
[2018-03-11] MEDS ORDERED: FLUC100T9 PO (13:55)
[2018-03-11] MEDS ORDERED: FURO20TA4 PO (13:59)
[2018-03-11 15:00] VITALS: BP 147/75
[2018-03-11] MEDS ORDERED: IPRA4AER IH (15:13)
== END 2018-03-11 16:40 | disposition home health service (06) | DRG 853 ==
LOC: ER 19:04 → ED HOLD 23:40 → EDBEDREQ 03-04 00:13 → SUR 3N 03-04 00:30 → PCU 3S 03-07 23:53
PROVIDERS: ADMIT Internal Medicine; ATTEND Family Medicine
PROC: 0D9670Z Drainage of Stomach with Drainage Device, Via Natural or Artificial Opening (ICD-10-PCS; 2018-03-04)
PROC: 0DNU0ZZ Release Omentum, Open Approach (ICD-10-PCS; 2018-03-04)
PROC: 0DN80ZZ Release Small Intestine, Open Approach (ICD-10-PCS; principal; 2018-03-04 11:54)
PROC: 5A09357 Assistance with Respiratory Ventilation, Less than 24 Consecutive Hours, Continuous Positive Airway Pressure (ICD-10-PCS; 2018-03-07)
PROC: 5A09357 Assistance with Respiratory Ventilation, Less than 24 Consecutive Hours, Continuous Positive Airway Pressure (ICD-10-PCS; 2018-03-08)
PROC: CB121ZZ Planar Nuclear Medicine Imaging of Lungs and Bronchi using Technetium 99m (Tc-99m) (ICD-10-PCS; 2018-03-08)
PROC: B32T1ZZ Computerized Tomography (CT Scan) of Left Pulmonary Artery using Low Osmolar Contrast (ICD-10-PCS; 2018-03-09)
PROC: B3201ZZ Computerized Tomography (CT Scan) of Thoracic Aorta using Low Osmolar Contrast (ICD-10-PCS; 2018-03-09)
PROC: B32S1ZZ Computerized Tomography (CT Scan) of Right Pulmonary Artery using Low Osmolar Contrast (ICD-10-PCS; 2018-03-09)
DX: A41.9 Sepsis, unspecified organism (principal); J96.01 Acute respiratory failure with hypoxia; E43 Unspecified severe protein-calorie malnutrition; B37.1 Pulmonary candidiasis; E87.2 Acidosis; N17.9 Acute kidney failure, unspecified; R18.8 Other ascites; K56.50 Intestinal adhesions [bands], unspecified as to partial versus complete obstruction; K56.7 Ileus, unspecified; J81.1 Chronic pulmonary edema; J98.11 Atelectasis; E87.6 Hypokalemia; I12.9 Hypertensive chronic kidney disease with stage 1 through stage 4 chronic kidney disease, or unspecified chronic kidney disease; N18.3 Chronic kidney disease, stage 3 (moderate); K80.20 Calculus of gallbladder without cholecystitis without obstruction; E86.0 Dehydration; F41.9 Anxiety disorder, unspecified; D64.9 Anemia, unspecified; K29.00 Acute gastritis without bleeding; R13.10 Dysphagia, unspecified; Z98.49 Cataract extraction status, unspecified eye; Z88.5 Allergy status to narcotic agent; Z79.899 Other long term (current) drug therapy; Z86.73 Personal history of transient ischemic attack (TIA), and cerebral infarction without residual deficits; Z82.49 Family history of ischemic heart disease and other diseases of the circulatory system; Z83.3 Family history of diabetes mellitus; Z82.3 Family history of stroke; Z82.41 Family history of sudden cardiac death; Z68.24 Body mass index [BMI] 24.0-24.9, adult
CPT/HCPCS: 36415; 36600; 71045; 71250; 71275; 74176; 76604; 78582; 80053; 80305; 81003; 82803; 83036; 83605; 83690; 83735; 83880; 84100; 84145; 84484; 85018; 85025; 85379; 85384; 85610; 85730; 86885; 86900; 86901; 87070; 92616; 93005; 93306; 93970; 94640; 94660; 94667; 94668; 94760; 96361; 96374; 96375; 97110; 97116; 97162; 97530; 99285; A7000; A9539; A9540; C9113; C9399; G0378; J0360; J0456; J0694; J0696; J0780; J1100; J1170; J1200; J1644; J1940; J2060; J2175; J2250; J2270; J2405; J2704; J2710; J2720; J2920; J2930; J3010; J3490; J7030; J7120; J7512; Q9963; Q9967

== ENCOUNTER 2020-07-10 08:53 | Day surgery (SDC) | payer MEDICARE ==
[2020-07-05 10:38] LABS: BASOPHILS # (AUTO) 0.1 X10'3 (0-0.2); BASOPHILS % (AUTO) 0.8 % (0-1); EOSINOPHILS # (AUTO) 0.2 X10'3 (0-0.9); LYMPHOCYTES % (AUTO) 31.6 % (21-51); MEAN CORPUSCULAR HEMOGLOBIN 32.3 PG (27.0-31.0); MEAN CORPUSCULAR HGB CONC 33.8 g/dL (33.0-36.5); MEAN CORPUSCULAR VOLUME 95.8 FL (78-98); MEAN PLATELET VOLUME 9.1 FL (7.4-10.4); MONOCYTES # (AUTO) 0.6 X10'3 (0-0.9); MONOCYTES % (AUTO) 9.7 % (2-12); NEUTROPHILS # (AUTO) 3.4 X10'3 (1.8-7.7); NEUTROPHILS % (AUTO) 54.9 % (42-75); PRE OP HEMATOCRIT 38.7 % (42.0-52.0); PRE OP HEMOGLOBIN 13.1 g/dL (14.0-17.9); PRE OP PLATELET COUNT 192 X10'3 (140-440); RED BLOOD COUNT 4.04 X10'6 (4.70-6.10)
[2020-07-05 10:53] LABS: ALBUMIN 3.8 G/DL (3.4-5.0); ALBUMIN/GLOBULIN RATIO 1.2 (1.1-1.5); ALKALINE PHOSPHATASE 58 IU/L (46-116); BLOOD UREA NITROGEN 24 MG/DL (7-18); BUN/CREATININE RATIO 19.5 (5.4-32.0); CALCIUM 9.1 MG/DL (8.5-10.1); CHLORIDE 104 MMOL/L (99-107); CREATININE 1.23 MG/DL (0.60-1.10); PRE OP ALT 22 U/L (30-65); PRE OP ANION GAP 8 (8-16); PRE OP AST 21 U/L (10-37); PRE OP BILIRUB, TOTAL 0.5 MG/DL (0.0-1.0); PRE OP GLUCOSE 95 MG/DL (70-104); PRE OP POTASSIUM 4.4 MMOL/L (3.4-5.1); PRE OP SODIUM 138 MMOL/L (135-145); TOTAL CARBON DIOXIDE 26.3 MMOL/L (24-32); eGFR 56 ML/MIN
[2020-07-10] VITALS (24 sets, daily range): BP systolic 142–198; BP diastolic 82–115
[~2020-07-10] VITALS: Ht 180.3 cm; Wt 86.5 kg
[~2020-07-10 08:53] MED LIST changes: +AREDS PO; -ASPI-41 PO; -ATOR10TA PO; +BUPIVACAINE liposomal/PF 13.3 MG/ML vial IM ONE; +BUPIVAcaine/PF 2.5 mg/ml (0.25%) 30ml vial ONE; +BUPIVAcaine/PF 2.5mg/ml (0.25%) 10ml vial ONE; -CHLO25TA2 PO; +DOCU-281 PO; +DOCUMENT DATE & TIME OF BETA-BLOCKER PO ONE; -ECHI350C PO; +FLO0.4C PO; +LIDOcaine 1% 30ml preserv. free vial ONE; +LORA-269 PO; -METO-395 PO; +METO-539 PO; -MULT-1179 PO; -UBID75CA; -VITA-67 PO; +ceFAZolin 2gm in dextrose, iso 50 ML IV ONE; +famotidine 20mg tablet PO ONE; +ringers solution, lacted 1,000 ML IV SCH
[2020-07-10] MEDS ORDERED: acetaminophen 1,000mg/100ml IV 100 ML IV ONE (09:48)
[2020-07-10] MEDS ORDERED: sevoflurane 250ml liquid IH ONE (10:55)
[2020-07-10] MEDS ORDERED: HYDROmorphone/PF 0.2 MG/ML SYRINGE IV PRN (10:55)
[2020-07-10] MEDS ORDERED: fentaNYL/PF 50MCG/1 ML 2ML syringe IV PRN ×2 (10:55)
[2020-07-10] MEDS ORDERED: ringers solution, lacted 1,000 ML IV SCH (10:55)
[2020-07-10] MEDS ORDERED: ondansetron/PF 4mg/2ml inj IV PRN (10:55)
[2020-07-10] MEDS ORDERED: fentaNYL/PF 50MCG/1 ML 2ML syringe ONE (10:59)
[2020-07-10] MEDS ORDERED: neostigmine methylsulfate 1 MG/ML 10ml vial ONE (12:16)
[2020-07-10] MEDS ORDERED: dexamethasone sod phosphate 4mg/ml inj. ONE (12:16)
[2020-07-10] MEDS ORDERED: ondansetron/PF 4mg/2ml inj ONE (12:16)
[2020-07-10] MEDS ORDERED: propofol inj 20 ML IV ONE (12:16)
[2020-07-10] MEDS ORDERED: LIDOcaine 2% (20mg/ml) 5ml vial ONE (12:16)
[2020-07-10] MEDS ORDERED: glycopyrrolate 0.2mg/ml inj ONE (12:16)
[2020-07-10] MEDS ORDERED: rocuronium 10mg/ml inj IV ONE (12:16)
[2020-07-10] MEDS ORDERED: ePHEDrine 50MG/ML INJ. ONE (12:19)
--- NOTE | 2020-07-10 12:47 | NUR ---
Received from OR via [facility], accompanied by Anesthesiologist DR DOE and report given by Anesthesiologist. PT DROWSY, NO S/S OF DISTRESS/DISCOMFORT, ABDOMEN W/3 LAP SITES W/BANDAIDS W/ABD BINDER COVERING CDI. Addendum: 07/10/20 at 1420 by Karie Kaiser RN Amended: Links added.
[2020-07-10] MEDS ORDERED: oxyCODONE/APAP 10/325mg tablet PO PRN (13:00)
[2020-07-10] MEDS ORDERED: oxyCODONE/APAP 5-325mg tablet PO PRN (13:00)
[2020-07-10] MEDS ORDERED: proCHLORperazine 5mg tablet PO PRN (13:00)
[2020-07-10] MEDS: hydrALAZINE 20mg/ml inj. IV PRN ×2 (15:08→15:23)
[2020-07-10] MEDS ORDERED: LIDOcaine 2% 10ml TOPICAL JELLY (Urojet) MM ONE (16:35)
--- NOTE | 2020-07-10 17:27 | NUR ---
PT ATTEMPT VOID X 2 W/VERY SMALL AMT OF URINE, BLADDER SCANNED FOR 580 ML, ORDERS RECEIVED TO STRAIGHT CATH PT, DANIELLE ERAZO STRAIGHT CATH PT FOR [address] OTILIO KUHN AND OKAY TO D/C PT TO HOME. D/C INSTRUCTIONS GIVEN AND GONE OVER W/PT AND PTS , PT D/CD TO HOME VIA W/C TO PRIVATE VEHICLE. Addendum: 07/10/20 at 1821 by Karie Kaiser RN Amended: Links added.
== END 2020-07-10 17:27 | disposition home or self-care (01) ==
LOC: PAS 08:53
PROVIDERS: ATTEND Surgery
DX: K43.2 Incisional hernia without obstruction or gangrene (principal); I10 Essential (primary) hypertension; F41.9 Anxiety disorder, unspecified; G89.29 Other chronic pain; M19.90 Unspecified osteoarthritis, unspecified site; N40.0 Benign prostatic hyperplasia without lower urinary tract symptoms; Z88.8 Allergy status to other drugs, medicaments and biological substances; Z88.5 Allergy status to narcotic agent; Z72.89 Other problems related to lifestyle; Z79.899 Other long term (current) drug therapy; Z90.49 Acquired absence of other specified parts of digestive tract; Z98.890 Other specified postprocedural states; Z82.49 Family history of ischemic heart disease and other diseases of the circulatory system; Z82.3 Family history of stroke; Z84.1 Family history of disorders of kidney and ureter
CPT/HCPCS: 36415; 49654; 64488; 80053; 82948; 85025; C1781; C9290; J0131; J0360; J1100; J1170; J2001; J2405; J2704; J2710; J3010; J3490; Q0164; A4215; A4618; J7120